=== PATIENT | female | born 1955 | race Caucasian/White ===

== ENCOUNTER 2016-05-08 08:49 | Emergency (ER) | payer BC, OTHER ==
[2016-05-08 09:29] VITALS: BP 139/70
--- NOTE | 2016-05-08 10:25 | UC ---
Respiratory Complaint HPI - HPI Summary HPI Summary: 60 yo female with > 1 week hx of cough/runny nose/ post nasal drip and facial pressur has had fevers and chills no CP No SOB - History of Current Complaint Chief Complaint: UCGeneralIllness Stated Complaint: COUGH,SORE THROAT Time Seen by Provider: 05/08/16 09:51 Hx Obtained From: Patient Onset/Duration: Gradual Onset, Lasting Weeks Timing: Constant Severity Initially: Mild Severity Currently: Moderate Pain Intensity: 4 Pain Scale Used: 0-10 Numeric Character: Cough: Nonproductive Aggravating Factors: Nothing Alleviating Factors: Nothing Associated Signs And Symptoms: Positive: Fever, Chills, Nasal Congestion, Hoarseness, Sinus Discomfort - Allergies/Home Medications Allergies/Adverse Reactions: Allergies Allergy/AdvReac Type Severity Reaction Status Date / Time Codeine Allergy Intermediate Hives and Verified 01/14/15 11:01 Nausea with occasional vomiting Home Medications: Home Medications Glipizide [Glucotrol] 40 mg PO BID 05/08/16 [History Confirmed 05/08/16] PMH/Surg Hx/FS Hx/Imm Hx Endocrine History Of: Reports: Diabetes, Thyroid Disease - Hypothyroidism Cardiovascular History Of: Reports: Hypertension Denies: Pacemaker/ICD - Surgical History Surgical History: Yes Surgery Procedure, Year, and Place: TUBAL LIGATION; carpal tunnel-2016 - Family History Known Family History: Positive: Hypertension - Social History Alcohol Use: None Substance Use Type: None Smoking Status (MU): Never Smoked Tobacco - Immunization History Most Recent Influenza Vaccination: FALL 2012 Review of Systems Constitutional: Fever, Chills Skin: Negative Eyes: Negative ENT: Sore Throat, Ear Ache, Nasal Discharge Respiratory: Cough Cardiovascular: Negative Gastrointestinal: Negative Genitourinary: Negative Motor: Negative Neurovascular: Negative Musculoskeletal: Negative Neurological: Negative Psychological: Negative All Other Systems Reviewed And Are Negative: Yes Physical Exam Triage Information Reviewed: Yes Appearance: Well-Appearing, No Pain Distress, Well-Nourished Vital Signs: Initial Vital Signs Temp 98.9 F 05/08/16 09:12 Pulse 76 05/08/16 09:12 Resp 16 05/08/16 09:12 BP 139/70 05/08/16 09:12 Pulse Ox 98 05/08/16 09:12 Vital Signs Reviewed: Yes Eyes: Positive: Conjunctiva Clear ENT: Positive: Hearing grossly normal, Nasal congestion, Nasal drainage, Other: - bilateral max sinus tenderness R>L. Negative: Tonsillar swelling, Tonsillar exudate, Trismus, Muffled/hoarse voice Neck: Positive: Supple, Nontender, No Lymphadenopathy Respiratory: Positive: Lungs clear, Normal breath sounds, No respiratory distress, No accessory muscle use Cardiovascular: Positive: RRR, No Murmur Musculoskeletal: Positive: ROM Intact, No Edema Neurological: Positive: Alert Psychological Exam: Normal Skin Exam: Normal UC Diagnostic Evaluation - Laboratory O2 Sat by Pulse Oximetry: 98 - normal/not hypoxic Respiratory Course/Dx - Differential Dx/Diagnosis Provider Diagnoses: acute sinusitis Discharge - Discharge Plan Condition: Stable Disposition: HOME Prescriptions: Benzonatate CAP* [Tessalon CAP*] 100 - 200 mg PO TID PRN #28 cap PRN Reason: Cough Cefuroxime Axetil [Ceftin 250 MG] 250 mg PO BID #20 tab Patient Education Materials: Sinusitis (ED) Referrals: Ty Tee MD [Primary Care Provider] - 5 Days (recheck next week if not better) Additional Instructions: warm facial compresses saline nasal spray twice daily
== END 2016-05-08 10:21 | disposition home or self-care (01) ==
LOC: UCCORT 08:49
DX: J01.90 Acute sinusitis, unspecified (principal); Z88.6 Allergy status to analgesic agent; E11.9 Type 2 diabetes mellitus without complications; Z79.84 Long term (current) use of oral hypoglycemic drugs
CPT/HCPCS: 99212; G0463

== ENCOUNTER 2016-06-05 15:00 | Emergency (ER) | payer SELFPAY ==
[2016-06-05 16:04] VITALS: BP 166/85
--- NOTE | 2016-06-05 16:48 | UC ---
Back Pain HPI - HPI Summary HPI Summary: on 02 Jun 2016 was bending down to lift a 50lb bag of trash into bin at work, felt sudden tearing in right lower back. Sudden pain radiating down right leg, had to stand there for a few min until she was able to walk inside. No history of similar pain. No fall, no other injuries. Sent here from work today, unable to do her duties due to pain. Pain down back of right leg all the way to foot, occasional pins/needles/numbness in lower extremity. Hurts to sit, hard to get comfortable. - History of Current Complaint Chief Complaint: UCBackPain Stated Complaint: RIGHT LEG,BACK INJURY WC Time Seen by Provider: 06/05/16 16:31 Hx Obtained From: Patient Onset/Duration: Gradual Onset Timing: Constant Severity Initially: Mild Severity Currently: Moderate Back Pain: Is Discrete @ - right lower lumbar Character: Sharp, Aching, Stiffness Aggravating: Movement, Lifting, Bending Alleviating: Rest Associated Signs And Symptoms: Positive: Pain with Weight Bearing - Risk Factors AAA Risk Factors: Negative TAD Risk Factors: Negative Cauda Equina Risk Factors: Negative Epidural Abscess Risk Factors: Negative - Allergies/Home Medications Allergies/Adverse Reactions: Allergies Allergy/AdvReac Type Severity Reaction Status Date / Time Codeine Allergy Intermediate Hives and Verified 06/05/16 16:04 Nausea with occasional vomiting PMH/Surg Hx/FS Hx/Imm Hx Endocrine History Of: Reports: Diabetes, Thyroid Disease Cardiovascular History Of: Reports: Hypertension Denies: Pacemaker/ICD - Surgical History Surgical History: Yes Surgery Procedure, Year, and Place: TUBAL LIGATION; right carpal tunnel - Family History Known Family History: Positive: None, Hypertension - Social History Occupation: Employed Full-time Lives: With Family Alcohol Use: None Substance Use Type: None Smoking Status (MU): Never Smoked Tobacco - Immunization History Most Recent Influenza Vaccination: [id number] Review of Systems Constitutional: Negative Skin: Negative Eyes: Negative ENT: Negative Respiratory: Negative Cardiovascular: Negative Gastrointestinal: Negative Genitourinary: Negative Motor: Negative Neurovascular: Negative Musculoskeletal: Decreased ROM, Myalgia Neurological: Paresthesia - lower leg, intermittent Psychological: Negative All Other Systems Reviewed And Are Negative: Yes Physical Exam Triage Information Reviewed: Yes Appearance: Well-Appearing, No Pain Distress, Well-Nourished Vital Signs: Initial Vital Signs Temp 98.8 F 06/05/16 16:01 Pulse 81 06/05/16 16:01 Resp 16 06/05/16 16:01 BP 166/85 06/05/16 16:01 Pulse Ox 100 06/05/16 16:01 Vital Signs Reviewed: Yes Eye Exam: Normal ENT Exam: Normal Neck exam: Normal Respiratory Exam: Normal Cardiovascular Exam: Normal Musculoskeletal Exam: Other - tenderness right lumbar musculature. Pain on twisting, bending at lower back Neurological Exam: Normal Neurological: Positive: Alert, Muscle Tone Normal Psychological Exam: Normal Skin Exam: Normal Back Pain Course/Dx - Differential Dx/Diagnosis Provider Diagnoses: sciatica Discharge - Discharge Plan Condition: Stable Disposition: HOME Prescriptions: Cyclobenzaprine TAB* [Flexeril TAB*] 10 mg PO TID PRN #30 tab PRN Reason: muscle spasm Hydrocodone-Acetaminophen [Hydrocodone/Acetaminophen 5-325 mg] 1 - 2 tab PO Q6HR PRN #30 tab MDD 6 tab PRN Reason: Pain Patient Education Materials: Sciatica (ED), Lower Back Exercises (ED) Forms: *Work Release Referrals: Ty Tee MD [Primary Care Provider] - Janusz WILLIS,[place] [Doctor of Chiropractic] -
== END 2016-06-05 16:56 | disposition home or self-care (01) ==
LOC: UCCORT 15:00
DX: M54.41 Lumbago with sciatica, right side (principal); Z88.5 Allergy status to narcotic agent
CPT/HCPCS: 99212; G0463